=== PATIENT | male | born 1950 | race African-American/Black ===

== ENCOUNTER 2017-04-16 11:13 | Day surgery (SDC) | payer OTHER ==
[~2017-04-16] VITALS: Ht 177.8 cm; Wt 97.5 kg
[2017-04-16 11:30] VITALS: BP 134/77; PULSE 59; RESP 17; O2SAT 97
[2017-04-16] MEDS ORDERED: VANCOMYCIN 1000 MG/NS 250 ML IV SCH ×2 (12:00)
[2017-04-16] MEDS ORDERED: POVIDONE IODINE 5% (ANTISEPSIS KIT) 4 APPLICATIONS EACH NARE SCH (12:00)
[2017-04-16] MEDS ORDERED: SODIUM CHLORID 0.9% 500 ML IV PRN (12:00)
[2017-04-16] MEDS ORDERED: POVIDONE IODINE 5% (ANTISEPSIS KIT) 4 APPLICATIONS EACH NARE PRN (12:00)
[2017-04-16] MEDS ORDERED: CHLORHEXIDINE GLUCONATE 2 % 1 PACK (2 CLOTHS) TOPICAL PRN (12:00)
[2017-04-16] MEDS ORDERED: PROPOFOL 200 MG/20 ML AMP IV ONE (12:00)
[2017-04-16] MEDS ORDERED: MUPIROCIN 2% OINT 1 APPLIC/GM SYR NASAL SCH (12:00)
[2017-04-16] MEDS ORDERED: NS 1000 ML IV SCH (12:00)
[2017-04-16] MEDS ORDERED: Hold AM Insulin & AM Hypoglycemic medications in diabetic patients PRN (12:00)
[2017-04-16] MEDS ORDERED: INSULIN HUMAN REGULAR 1,000 UNITS/10 ML VIAL SQ PRN (12:00)
[2017-04-16] MEDS ORDERED: MIDAZOLAM HCL 2 MG/2 ML VIAL IV ONE (12:00)
[2017-04-16] MEDS ORDERED: NO Heparin, Lovenox, Coumadin at least 12 hours prior to procedure. PRN (12:00)
[2017-04-16] MEDS ORDERED: CHLORHEXIDINE GLUCONATE 2 % 1 PACK (2 CLOTHS) TOPICAL SCH (12:00)
[2017-04-16] MEDS ORDERED: ceFAZolin 2 GM PREMIX 50 ML IV SCH (12:00)
[2017-04-16] MEDS ORDERED: METOPROLOL TARTRATE 25 MG TAB PO PRN (12:00)
[2017-04-16] MEDS ORDERED: LACTATED RINGER'S 1000 ML IV PRN (12:00)
[2017-04-16] MEDS ORDERED: METO200T3 PO (12:37)
[2017-04-16] MEDS ORDERED: TORS20TA PO (12:37)
[2017-04-16] MEDS ORDERED: AMLO5TAB2 PO (12:37)
[2017-04-16] MEDS ORDERED: LISI40TA PO (12:37)
[2017-04-16] MEDS ORDERED: LIVA2TAB PO (12:37)
[2017-04-16] MEDS ORDERED: POTA10CA PO (12:37)
[2017-04-16] MEDS ORDERED: ASPI81CH PO (12:37)
[2017-04-16 12:43] LABS: AUTOMATED NEUTROPHIL # 3.6 TH/MM3 (1.8-7.7); BASOPHIL % 0.2 % (0.0-2.0); EOSINOPHIL # 0.2 TH/MM3 (0-0.4); EOSINOPHIL % 3.4 % (0.0-4.0); HEMATOCRIT 36.6 % (39.0-51.0); HEMO FLAGS DIFF FINAL; LYMPH % 34.4 % (9.0-44.0); LYMPHOCYTE # 2.3 TH/MM3 (1.0-4.8); MEAN CELL VOLUME 107.9 FL (80.0-100.0); MEAN CORPUSCULAR HEMOGLOBIN 35.1 PG (27.0-34.0); MEAN CORPUSCULAR HGB CONC 32.5 % (32.0-36.0); MONO % 7.9 % (0.0-8.0); NEUT % 54.1 % (16.0-70.0); PLATELET COUNT 147 TH/MM3 (150-450); RED BLOOD COUNT 3.39 MIL/MM3 (4.50-5.90); RED CELL DISTRIBUTION WIDTH 13.4 % (11.6-17.2); WHITE BLOOD COUNT 6.6 TH/MM3 (4.0-11.0)
[2017-04-16 12:52] LABS: APTT (PATIENT) 27.9 SEC (24.3-30.1); INTERNATIONAL NORMALIZED RATIO 0.9 RATIO; PROTHROMBIN TIME - PATIENT 10.3 SEC (9.8-11.6)
[2017-04-16 13:05] LABS: BICARBONATE 28.4 MEQ/L (21.0-32.0); POTASSIUM 3.6 MEQ/L (3.5-5.1)
[2017-04-16] MEDS ORDERED: VANCOMYCIN 500 MG VIAL ONE ×2 (13:33→14:41)
[2017-04-16] MEDS ORDERED: LIDOCAINE HCL 2% 50 ML VIAL ONE (13:33)
--- NOTE | 2017-04-16 15:24 | CATHPROC ---
gdgt HIS Report Study Information Study Number Admission Scheduled Start Study Start [id number] Apr 16 2017 11:13AM 04/16/2017 Apr 16 2017 12:27PM [place] Service Cardiac Catheterization Admit Source Facility Department Other [facility] - Press Setup Operator Physician and Clinical Staff Initial MD Garber, Brian Military Nurse Shen Frances,RT(R) Other Anesthesia, DIRECTOR OF STRATEGIC PARTNERSHIPS Recorder Vonnie Moore,VALERIO Scrub Radha Perry RCIS Equipment Time Crm Functional Analyst Description Size Mfg Part Number Used/Scraped CATHETER, BIFURCATED 14:01 ANGIO-DYNAMICS FR 5 [id number] Used INFUSION BENEPHIT TP-1103 12:29 MEDLINE INDUSTRIES SUTURE, STRIP PLUS 1/2" * Used *[id number] 12:29 MEDLINE PACER ADHESIVE, MASTISOL 2/3CC 2/3CC 0523-48 Used 12:29 MEDLINE PACER LEON, LIMB * 2530 *[id number] Used [id number] 12:29 MEDLINE PACER PACK, PACER CUSTOM * Used *[id number] 12:29 MEDLINE PACER PEN, SKIN DUAL W/ RULER * Used *[id number] PROBE COVER, STERILE [id number] 12:29 Step On Up Graphics MEDICAL * Used ULTRASOUND W/ GEL *[id number] 13:39 Needle Sponge Count 1 111 Used 13:39 Needle Sponge Count 2 2 Used 13:39 Needle Sponge Count 30 1 Used [id number] *[id number] 8066-54 *[id number] SUTURE, 0 SILK [CT1] (CO21D), 8pk SUTURE, 3-0 MONOCRYL [SH] (Y316H) SUTURE, 3-0 MONOCRYL [SH] (Y316H) SUTURE, 3-0 MONOCRYL [SH] (Y316H) SUTURE, 4-0 MONOCRYL [PS2] (Y496G) SUTURE, 4-0 MONOCRYL [PS2] (Y496G) [id number] 12:29 [employer],WARM AIR CCL * Used *[id number] [facility] PAD, ELECTROSURGICAL 12:29 * [id number] *[id number] Used SURGICAL GROUNDING ORANGE 14:01 VITATRON [employer] DEFIBRILLATOR, VIVA XT FOOD ORDER EXPEDITER-D DDE-DDDR [id number] Used 13:38 VITATRON MEDTRON[employer] PLASMABLADE, PEAD 3.0S * [id number] Used 2009-1900 12:29 Cisiv. ELECTRODE, PRO-PADZ BIPHASIC * Used *[id number] Equipment Model, Serial, Lot Number and Expiration Data Description Model Number Serial Number Lot Number Expiration Date DEFIBRILLATOR, VIVA XT FOOD ORDER EXPEDITER-D [id number] 03-22-2018 Medication Medication Total Dose (Bolus/Oral) Medication Total Dosage/Unit 2% XYLOCAINE 50 mL Medications (Bolus/Oral) Medication Time Given Dosage/Unit Administered By Reason 2% XYLOCAINE 04/16/2017 1:59:01 PM 50 mL Brian Garber 50 mL 2% XYLOCAINE given in lab by Brian Garber in Left shoulder via Subcutaneous. Medication (Drip) Medication Time Given Dosage/Unit Concentration/Unit Diluent (ml) Solution ANCEF 04/16/2017 1:25:23 PM 2 g 2 g ANCEF given in lab by Vonnie Moore RN in Right Antecubital via Peripheral IV. Ordered by Brian Talbert. Reason: As per physicians verbal order. VANCOMYCIN DRIP 04/16/2017 1:25:57 PM 1 g 1 g VANCOMYCIN DRIP given in lab by Vonnie Moore RN in Right Antecubital via Peripheral IV. Orde red by Brian Garber. Reason: As per physicians verbal order. Initial Case Assessment Cardiovascular HR Rhythm NIBP Chest Pain 60 vp corporate partnerships 146/75 0 Edema Present Skin color Skin None Normal Warm Dry Circulatory - Right Pulses Radial 1 Scale (0,1,2,3,4,d) Circulatory - Left Pulses Radial 1 Scale (0,1,2,3,4,d) Circulatory - Lower Extremities Color Lower Right Color Lower Left Normal Normal Neurological State Oriented to time-place- Alert Moves all extremities person Respiration - General Respiration Rate SpO2 (%) (B/min) 20 90 Final Case Assessment Cardiovascular HR Rhythm NIBP Chest Pain 69 vp corporate partnerships 107/63 0 Edema Present Skin color Skin None Normal Warm Dry Circulatory - Right Pulses Radial 1 Scale (0,1,2,3,4,d) Circulatory - Left Pulses Radial 1 Scale (0,1,2,3,4,d) Circulatory - Lower Extremities Color Lower Right Color Lower Left Normal Normal Neurological State Oriented to time-place- Lethargic Moves all extremities person Respiration - General Respiration Rate SpO2 (%) (B/min) 16 98 Chronological Log Time Study Chronological Log 13:13:05 Patient arrived via Bed. 13:13:07 Patient Name, D.O.B, / Armband Verified By R.N. 13:13:08 Consent signed by the physician and the patient and verified by the Press Setup Operator staff. 13:13:09 Pre-op and post- op instructions given; patient acknowledges understanding of instructions. 13:13:10 Anesthesia at bedside. Assumes care of patient. shaheed 13:13:12 Verbal Stimulation=2 Physical Stimulation=2 Airway=2 Respiration=2 TOTAL=8. (0=absent, 1=li mited, 2=present) 13:13:25 Presedation assessment performed by Press Setup Operator RN. 13:14:20 Patient has been NPO for More than 6Hrs. 13:14:20 Skin Breakdown- 13:14:21 Patient Warmer Placed on the Table. 13:14:22 Disposable Defibrillator Pads Placed On Patient. 13:14:24 Nelson Prominences Protected 13:14:25 A # 20 IV was noted in the Antecubital (right). Grade = 0 0.9ns kvo 13:14:26 A # 20 IV was noted in the Antecubital (right). Grade = 0 0.9ns kvo 13:14:27 History and physical on the chart or being dictated. 2 g ANCEF given in lab by Vonnie Moore, RN in Right Antecubital via Peripheral IV. Ordered by Brian Garber. 13:25:23 Reason: As per physicians verbal order. Assessment: Initial Case, HR=60 BPM, Rhythm=vp corporate partnerships, CSUL=467/75 mmhg, Chest Pain=0, Edema=None, Col or=Normal, Skin = Warm, Dry Right Pulses: Radial=1 Left Pulses: Radial=1 13:25:26 Lower Right Extremities: Color=Normal Lower Left Extremities: Color=Normal Neurological: State=Alert, Ox3, VALADEZ Respiration: Resp=20 B/min, SpO2=90 % 1 g VANCOMYCIN DRIP given in lab by Vonnie Moore, VALERIO in Right Antecubital via Peripheral IV . Ordered by Jcarlos 13:25:57 Brian. Reason: As per physicians verbal order. 13:29:12 Table restraints applied according to hospital policy 13:29:15 2% CHLORHEXIDINE GLUCONATE WASH AND NASAL SWIPE DONE PRIOR TO PROCEDURE. 13:29:23 Bovie ground pad applied to: right thigh First Sponge And Instrument Count Done by Radha Perry RCIS. 13:38:55 Hypo's: 2, Sponges: 30, Bovie/scratch: 1 Sutures: 11, Blades: 2, Instruments: 26, Syveck Patches: 0 verified by MM 13:43:16 Reference ECG taken 13:54:05 MD arrived. Time Out. Correct patient, procedure, procedure equipment, site and side verified with physicia n present. Time 13:58:00 concurred by MD, individual staff and DIRECTOR OF STRATEGIC PARTNERSHIPS. Time Out #2 - Consents verified, patient in correct position, all results are labled and displa yed, safety precautions 13:58:23 taken, antibiotics administered. Time out concurred by MD, individual staff and DIRECTOR OF STRATEGIC PARTNERSHIPS in procedu re 13:58:47 Case Start 13:59:01 50 mL 2% XYLOCAINE given in lab by Brian Garber in Left shoulder via Subcutaneous. 14:01:38 Surgical Incision Made. 14:01:59 A pocket was created at the L Upper Chest. 14:19:04 A device was explanted. 14:19:49 Pocket flushed with antibiotic solution 14:23:27 A DEFIBRILLATOR, VIVA XT FOOD ORDER EXPEDITER-D DDE-DDDR was connected and placed in the pocket. 14:28:53 Pocket flushed with antibiotic solution Second Sponge And Instrument Count Done by Radha Perry RCIS. 14:32:30 Hypo's: 2, Sponges: 30, Bovie/scratch: 1 Sutures: 11, Blades: 2, Instruments: ~INSTRU~, Syveck Patches: ~SYVECK PATCH~ verified by DB 14:33:39 DOCU called. Spoke to Kimberly 14:33:55 Bedside Report will be given. 14:34:00 Pocket flushed with antibiotic solution 14:34:08 Implant Procedure was performed. 14:34:16 A Bivent ICD Implant . (Single) 14:42:48 Laura is going in the pocket per Dr. Garber 14:46:06 Syvek also placed in the pocket for hemostasis 14:47:58 Syvek patch removed 14:53:15 The pocket was closed. 14:57:13 1 Suture and 10 lap sponges added to the table. Final Sponge And Instrument Count Done by Radah Perry RCIS. 15:14:07 Hypo's: 2, Sponges: 40, Bovie/scratch: 1 Sutures: 11, Blades: 2, Instruments: 26, Syveck Patches: 0 verified by MM 15:18:11 Steri-strips and a sterile dressing applied to site. 15:20:10 Case End 15:20:50 No case complications noted. 15:20:51 Cine recording checked. 15:20:55 Defibrillator and ground pads removed. Skin intact. Assessment: Final Case, HR=69 BPM, Rhythm=vp corporate partnerships, VDGB=164/63 mmhg, Chest Pain=0, Edema=None, Bath r=Normal, Skin = Warm, Dry Right Pulses: Radial=1 Left Pulses: Radial=1 15:21:01 Lower Right Extremities: Color=Normal Lower Left Extremities: Color=Normal Neurological: State=Lethargic, Ox3, VALADEZ Respiration: Resp=16 B/min, SpO2=98 % 15:22:11 Implantable Device card placed in patient's chart. 15:30:14 [facility] - Contrast Media Used In Study Contrast Total Opened (mL) Total Used (mL) Total Wasted (mL) Omnipaque 0 0 0 End Study - Radiation Exposure Fluoro Time (minutes) 0.2 End Study - Patient Disposition Complications Transferred To Interventional Outcome No Telemetry Bed successful
--- NOTE | 2017-04-16 16:17 | EKG ---
Date Performed: 04/16/2017 Time Performed: 12:19:48 PTAGE: 66 years EKG: Ventricular paced rhythm with occasional PVCs Abnormal ECG NO PREVIOUS TRACING DOCTOR: Chong Esteban Interpretating Date/Time 04/16/2017 16:16:55
--- NOTE | 2017-04-17 06:35 | MP ---
cc: BRIAN GARBER M.D. DATE OF SURGERY 04/16/2017 PROCEDURE TENNIS PROFESSIONAL device. INDICATIONS Pulse generator MARTINA. PROCEDURE Pulse generator change out. CONSENT A full, informed consent was obtained prior to the procedure. The risks of , bleeding, perforation, aspiration, foreseen and unforeseen complications were reviewed. The patient fully appeared to understand the risks. PROCEDURAL STATEMENTS The patient was draped and prepped in the usual manner. The left infraclavicular area was carefully infiltrated with lidocaine. Anesthesia was given as per the Anesthesia Department. The pulse generator pocket was then anesthetized with lidocaine. Using blunt, sharp and cautery dissection, using a plasma knife the pulse generator pocket was opened. There was evidence of significant oozing. The pulse generator lead was then carefully dissected out using the plasma knife. Some old scar tissue was removed. The ICD would not easily set into the pocket because of significant scar tissue. This was further adjusted. Following this Syvek patch and Laura were used t help with oozing and the pocket was closed in three layers. Once the pocket was opened, the old pulse generator was removed. The new pulse generator was placed with the leads placed into the respective headers. The set screws tightened but not over-tightened. Each lead was carefully tugged on to make sure that the lead was fast and in good position. The pocket was flushed with vancomycin solution on several occasions. The pocket was finally closed in three to four layers and pressure was applied until good hemostasis was also achieved and the patient returned to her room in stable condition with a pressure dressing. PLAN We will plan to discharge the patient later today. Follow up on Sunday to see me and then in a couple weeks to see his regular office secretary. Brian Garber MD, CP,[facility]/[place]NIE /3:18 PM /6:18 AM
== END 2017-04-16 18:15 | disposition home or self-care (01) ==
LOC: HCAT 11:13 → HDIC 11:13 → HCAT 18:15
PROVIDERS: ATTEND Internal Medicine Cardiovascular Disease
DX: Z45.02 Encounter for adjustment and management of automatic implantable cardiac defibrillator (principal); I50.22 Chronic systolic (congestive) heart failure; I48.91 Unspecified atrial fibrillation; I42.9 Cardiomyopathy, unspecified; I10 Essential (primary) hypertension; E78.5 Hyperlipidemia, unspecified; G47.30 Sleep apnea, unspecified; Z79.82 Long term (current) use of aspirin
CPT/HCPCS: 00530; 33264; 80048; 85025; 85610; 85730; 93005; C1882; J0690; J2250; J3010; J3370; J7050